=== PATIENT | female | born 1990 | race Caucasian/White ===

== ENCOUNTER 2023-10-01 10:33 | Observation (INO) | payer BC, SELFPAY ==
[2023-10-01 11:29] LABS: % Basophils 0.5 % (0-2); % Eosinophils 1.2 % (0-6); % Immature Granulocytes 1.2 % (0-0.5); % Lymphocytes 23.2 % (20.5-51.1); % Monocytes 10.5 % (1.7-9.3); % Neutrophils 63.4 % (42.2-75.2); Absolute Eosinophils 0.1 10^3/uL (0-0.7); Absolute Immature Granulocytes 0.1 10^3/uL (0-0.05); Absolute Lymphocytes 1.9 10^3/uL (1.2-3.4); Absolute Monocytes 0.9 10^3/uL (0.1-0.6); Absolute Neutrophils 5.2 10^3/uL (1.4-6.5); Hematocrit 38.6 % (37.0-47.0); Mean Corp Hgb Conc. 33.7 g/dL (33.0-37.0); Mean Corpuscular Hgb 28.2 pg (27.0-31.0); Mean Corpuscular Volume 83.7 fL (81.0-99.0); Mean Platelet Volume 9.3 fL (7.4-10.4); Nucleated Red Blood Cells % 0 %; Platelet Count 261 10^3/uL (130-400); Red Blood Cell Count 4.61 10^6/uL (4.20-5.40); Red Cell Dist. Width 15.1 % (11.5-14.5); White Blood Cell Count 8.1 10^3/uL (4.8-10.8)
[2023-10-01 11:40] LABS: Urine Albumin Negative (Neg - Trace); Urine Bilirubin Negative (Negative); Urine Character Clear (Clear); Urine Color Straw; Urine Glucose Negative (Negative); Urine Ketone Negative (Negative); Urine Leukocyte Negative (Negative); Urine Nitrite Negative (Negative); Urine Occult Blood Negative (Negative); Urine Urobilinogen Negative (Neg - 1+)
[2023-10-01 11:41] LABS: ALT (SGPT) 14 U/L (0-35); AST (SGOT) 22 U/L (14-36); Albumin 3.4 g/dl (3.5-5.0); Alkaline Phosphatase 179 U/L (38-126); Blood Urea Nitrogen 12 mg/dl (7-17); Calcium 9.3 mg/dl (8.4-10.2); Carbon Dioxide 24 mmol/L (22-30); Chloride 108 mmol/L (98-107); Glucose 104 mg/dl (70-99); Potassium 4.4 mmol/L (3.5-5.1); Sodium 133 mmol/L (135-145); Total Bilirubin 0.3 mg/dl (0.2-1.3); Total Protein 6.1 g/dl (6.3-8.2); eGFR > 60.00
[2023-10-01 11:59] VITALS: BP 149/98; BMI 29.9
[2023-10-01 12:12] LABS: Urine Protein 14 mg/dl
[2023-10-01 14:11] LABS: Protein/creatinine Ratio 0.7
== END 2023-10-01 15:26 | disposition home or self-care (01) ==
LOC: PNTC-IN 10:33
PROVIDERS: ADMITTING PHYSICIAN Obstetrics & Gynecology
DX: O14.03 Mild to moderate pre-eclampsia, third trimester (principal); Z3A.39 39 weeks gestation of pregnancy
CPT/HCPCS: 59025; 76815; 80053; 81003; 82570; 84156; 85025; 86850; 86900; 86901; G0378

== ENCOUNTER 2023-10-01 19:33 | Inpatient (IN) | payer BC, SELFPAY ==
[2023-10-01 19:41] VITALS: BMI 29.9
[2023-10-01 20:00] VITALS: BP 130/85
[2023-10-01 20:33] LABS: % Basophils 0.5 % (0-2); % Eosinophils 1.2 % (0-6); % Immature Granulocytes 1.2 % (0-0.5); % Lymphocytes 24.1 % (20.5-51.1); % Monocytes 10.8 % (1.7-9.3); % Neutrophils 62.2 % (42.2-75.2); Absolute Eosinophils 0.1 10^3/uL (0-0.7); Absolute Immature Granulocytes 0.1 10^3/uL (0-0.05); Absolute Lymphocytes 2.1 10^3/uL (1.2-3.4); Absolute Monocytes 0.9 10^3/uL (0.1-0.6); Absolute Neutrophils 5.4 10^3/uL (1.4-6.5); Hemoglobin 12.3 g/dL (12.0-16.0); Mean Corp Hgb Conc. 34.2 g/dL (33.0-37.0); Mean Corpuscular Hgb 27.4 pg (27.0-31.0); Mean Corpuscular Volume 80.2 fL (81.0-99.0); Mean Platelet Volume 9.2 fL (7.4-10.4); Nucleated Red Blood Cells % 0 %; Platelet Count 275 10^3/uL (130-400); Red Blood Cell Count 4.49 10^6/uL (4.20-5.40); Red Cell Dist. Width 14.9 % (11.5-14.5); White Blood Cell Count 8.7 10^3/uL (4.8-10.8)
[2023-10-01] MEDS: CYTOTEC 25 MICROGRAM VAG (21:33)
[2023-10-01] MEDS: LR 1000 IV (22:52)
[2023-10-02] MEDS: BRETHINE 250 MCG SC (02:25)
[2023-10-02] MEDS: PITOCIN 30 UNITS/NSS 500 ML IV (20:54)
[2023-10-02] MEDS: XYLOCAINE-MPF 1% VIAL 30 ML INFIL (21:00)
[2023-10-02] MEDS: TYLENOL 650 MG PO (21:50)
[2023-10-02] MEDS: TRANDATE 200 MG PO (22:00)
[2023-10-03] MEDS: MOTRIN 600 MG PO ×2 (00:48→20:36)
[2023-10-03 05:33] LABS: Hematocrit 34.3 % (37.0-47.0); Hemoglobin 11.9 g/dL (12.0-16.0)
[2023-10-03] MEDS: TRANDATE 200 MG PO ×2 (08:55→20:35)
[2023-10-03 12:14] LABS: Syphilis/T. pallidum Ab Reflex Negative (Negative)
[2023-10-04] MEDS: MOTRIN 600 MG PO (02:58)
[2023-10-04] MEDS: PRENATAL PLUS 1 TABLET PO (08:03)
[2023-10-04] MEDS: TRANDATE 200 MG PO (08:03)
[2023-10-04] MEDS: SENOKOT-S 1 TABLET PO (08:04)
== END 2023-10-04 11:30 | disposition home or self-care (01) | DRG 807 ==
LOC: LDRP 19:33
PROVIDERS: Obstetrics & Gynecology; ADMITTING PHYSICIAN Obstetrics & Gynecology
PROC: 3E0P7VZ Introduction of Hormone into Female Reproductive, Via Natural or Artificial Opening (ICD-10-PCS; 2023-10-01)
PROC: 10E0XZZ Delivery of Products of Conception, External Approach (ICD-10-PCS; 2023-10-02)
PROC: 10907ZC Drainage of Amniotic Fluid, Therapeutic from Products of Conception, Via Natural or Artificial Opening (ICD-10-PCS; 2023-10-02)
PROC: 0HQ9XZZ Repair Perineum Skin, External Approach (ICD-10-PCS; 2023-10-02)
PROC: 0U7C7ZZ Dilation of Cervix, Via Natural or Artificial Opening (ICD-10-PCS; 2023-10-02)
DX: O14.04 Mild to moderate pre-eclampsia, complicating childbirth (principal); Z37.0 Single live birth; Z3A.39 39 weeks gestation of pregnancy; O70.0 First degree perineal laceration during delivery; Z88.2 Allergy status to sulfonamides
CPT/HCPCS: 88307; 36415; 59025; 80053; 81003; 82570; 84156; 85014; 85018; 85025; 86780; 86850; 86900; 86901; G0378